=== PATIENT | female | born 1970 | race African-American/Black ===

== ENCOUNTER 2017-03-23 21:15 | Inpatient (IN) ==
[2017-03-23 21:48] LABS: Basophils % 0.4 % (0.0-0.8); Eosinophils # 0.3 10*3/uL (0.0-0.87); Eosinophils % 3.1 % (0.00-10.9); Hematocrit 44.4 VOL% (35.7-47.0); Hemoglobin 13.5 GM/DL (12.0-16.0); Immature Granulocytes % 0.4 %; Immature Granulocytes Absolute 0.04 #; Lymphocytes # 2.3 10*3/uL (1.4-4.0); Lymphocytes % 24.7 % (21.3-54.2); Mean Corpuscular HGB Conc 30.4 GM/DL (32-36); Mean Corpuscular Hemoglobin 25 PG (27-34); Mean Corpuscular Volume 82.1 FL (87-102); Mean Platelet Volume 10.4 FL (9.6-12.0); Monocytes # 0.7 10*3/uL (0.11-0.8); Monocytes % 7.1 % (1.7-12.7); Neutrophils # 5.9 10*3/uL (1.4-7.4); Neutrophils % 64.3 % (38.7-73.9); Platelet Count 309 T/CUMM (130-400); Red Blood Count 5.41 MC/CUMM (3.8-5.5); Red Cell Distribution Width 17.4 % (9.3-17.3); White Blood Count 9.2 T/CUMM (4-12)
[2017-03-23 22:12] LABS: Alanine Aminotransferase 17 U/L (13-56); Albumin 3.3 G/DL (3.4-5.0); Alkaline Phosphatase 141 U/L (45-117); Aspartate Amino Transferase 16 U/L (0-37); Bilirubin,Direct < 0.10 MG/DL (0.0-0.20); Bilirubin,Total < 0.39 MG/DL (0.2-1.0); Blood Urea Nitrogen 13 MG/DL (7-18); Calcium 9.3 MG/DL (8.5-10.1); Glucose 163 MG/DL (74-106); Osmolality,Calculated 276.8 MOS/KG (273-304); Potassium 4.2 MMOL/L (3.5-5.1); Sodium 137 MMOL/L (136-145); Total Protein 7.6 G/DL (6.4-8.3); Troponin I Only 0.023 NG/ML (0.00-0.045)
--- NOTE | 2017-03-23 22:35 | Emergency Department Note ---
Tree Winters Brittany, am scribing for, and in the presence of, Bart Bolaños MD 21 :47. Mami Winters Hans, MD, personally performed the services described in this documentation, ascribed by Ana Leavitt in my presence, and it is both accurate and complete . Arrival - Arrival Chief Complaint: Chest Pain Stated Complaint: chest pains/arm pain/stomach burning/weak ED Nursing Triage Note: pt to er 08 via wc with c/o having chest pain with nausea and radiating right arm pain. pt denies vomiting and denies sob. pt also c/o having abd pain. pt states onset this am 0700 Mode of Arrival: Wheelchair Limitations: No Limitations Source: Patient, RN Notes Reviewed - History of Present Illness HPI Narrative: Patient is a 46 y/o black female presenting to the ED with c/o chest pain which onset at 0700 this morning. Patient describes this pain as constant and pressure -like located in the mid-sternal chest radiating into the RUE. She states that nothing makes this pain better or worse. She states that she has had some tingling of the bilateral fingers, but has had no shortness of breath, diaphoresis, clammy skin, or pallor. Patient reports having janie mid-epigastric and RUQ abdominal pain described as a burning sensation that radiates into the back and shoulder. She states that she feels weak. Family hx significant for Heart Disease and [place]. Patient currently resides in [place], [place] and was here visiting a grandchild. 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 Patient has no other complaint/ pain. Onset (ago): hour(s) (14) Consistency: constant Allergies/Adverse Reactions: Allergies Allergy/AdvReac Type Severity Reaction Status Date / Time No Known Allergies Allergy Unverified 03/23/17 21:33 Review of System - Review of System 12 point system: reviewed and no additional remarkable complaints except as stated - Review of System Constitutional: Absent: chills, fever Eyes: Absent: vision change Head/Ears/Nose/Throat: Absent: nasal drainage, sore throat Respiratory: Absent: respiratory distress Cardiovascular: Present: chest pain Gastrointestinal: Present: abdominal pain. Absent: nausea, vomiting, diarrhea, constipation Genitourinary female: Absent: dysuria, frequency, urgency Musculoskeletal: Present: arm pain (shoulder, RUE), back pain. Absent: leg pain , neck pain Skin: Absent: rash Neurological: Present: paresthesias (bilateral fingers). Absent: headache Psychiatric: Absent: anxiety, depression Medical,Surgical,& Family Hx - Social History Smoking Status: Never smoker Frequency of Alcohol Use: Occasionally Type of Drug Use: None Exam Vital Signs: Vital Signs Temperature 98.7 F 03/23/17 21:25 Pulse Rate 86 03/23/17 21:25 Respiratory Rate 18 03/23/17 21:48 Blood Pressure 151/93 03/23/17 21:25 O2 Sat by Pulse Oximetry 99 03/23/17 21:25 - General General appearance: alert, in no apparent distress, obese - Head Head exam: Present: atraumatic, normocephalic, normal inspection - Eye Eye exam: Present: normal appearance, PERRL, EOMI - ENT ENT exam: Present: normal exam, normal oropharynx - Neck Neck exam: Present: full ROM, trachea midline. Absent: normal inspection (scar consistent with prior tracheostomy) - Chest Chest inspection: Present: normal inspection, symmetric chest wall rise. Absent : tenderness - Respiratory Respiratory exam: Present: normal lung sounds bilaterally - Cardiovascular Cardiovascular exam: Present: regular rate, normal rhythm, normal heart sounds - Abdominal Exam Abdominal exam: Present: soft, tenderness (mid-epigastric and RUQ), normal bowel sounds - Extremities Exam Extremities exam: Present: normal inspection - Back Exam Back exam: Present: normal inspection - Neurological Exam Neurological exam: Present: alert, oriented X3, CN II-XII intact. Absent: motor sensory deficit - Psychiatric Psychiatric exam: Present: normal affect, normal mood - Skin Skin exam: Present: warm, dry Course Course Narrative: This patient was evaluated in the ER with blood work as well as EKG. Her troponin was negative. EKG showed no ST changes. Right upper quadrant ultrasound was done for some tenderness there but it was negative. LFTs were normal. This patient is high risk for coronary artery disease and I discussed with the hospitalist on-call who agreed to come and see her for further treatment and workup. Results - Labs CBC & BMP: 03/23/17 21:29 03/23/17 21:29 Lab Results: I have reviewed the patients labs Labs: Laboratory Tests 03/23/17 21:29 WBC 9.2 RBC 5.41 Hgb 13.5 Hct 44.4 MCV 82.1 L MCH 25 L MCHC 30.4 L RDW 17.4 H Plt Count 309 Laboratory Tests 03/23/17 03/23/17 03/23/17 21:29 21:29 21:29 D-Dimer, Quantitative <= 0.5 Sodium 137 Potassium 4.2 Chloride 97 L Carbon Dioxide 31 BUN 13 Creatinine 0.80 Glucose 163 H Alkaline Phosphatase 141 H Total Creatine Kinase 179 CK-MB (CK-2) 1.4 Troponin I 0.023 Total Protein 7.6 Albumin 3.3 L Globulin 4.3 H Albumin/Globulin Ratio 0.7 L Laboratory Tests 03/23/17 21:29 B-Natriuretic Peptide 7 Disposition Clinical Impression: Chest pain Case discussed with: patient Disposition: Still a Patient Condition: Stable Instructions: Chest Pain (ED) Time of Disposition: 22:35
[2017-03-24] MEDS ORDERED: ONDANSETRON 4 MG/2 ML VIAL IV PRN (02:45)
--- NOTE | 2017-03-24 02:52 | Hospitalist History & Physical ---
Assessment and Plan (1) History of congestive heart failure Status: Acute Current Visit: Yes (2) Diabetes Status: Acute Current Visit: Yes (3) Chest pain Status: Acute Assessment and plan: Our plan for this patient will be admitting him to our service. Patient will be placed on telemetry. Serial cardiac enzymes were drawn. Cardiology will be consulted. Accu-Cheks before meals and at bedtime and sliding scale as needed. Home medications need to be confirmed Current Visit: Yes History of Present Illness Chief complaint: Chest pain History of present illness: Ms. Mazariegos is a 46 year old female with past medical history significant for hypertension, congestive heart failure, diabetes, arthritis who is in normal state of health until this morning. Patient had a squeezing sensation in her chest. She denies diaphoresis but did get her nauseated and burning sensation in her stomach. Seem to radiate to her right shoulder. She got concerned that was her heart and came up to our hospital for further evaluation. I was consulted to admit her through the emergency room. Allergies Allergy/AdvReac Type Severity Reaction Status Date / Time No Known Allergies Allergy Unverified 03/23/17 21:33 Medical,Surgical,& Family Hx - Medical History Cardio: History of: CHF, Hypertension Endocrine: History of: Diabetes Mellitus (NIDDM) - Surgical History Additional Surgical History: Tracheostomy - Family History Family History: Reports;: Family Diabetes, Family Heart Disease, Family Hypertension - Social History Smoking Status: Never smoker Frequency of Alcohol Use: Occasionally Type of Drug Use: None 12 point system: reviewed and no additional remarkable complaints except as stated Exam - Constitutional Vitals: Period Temp Pulse Resp BP Sys/Phan Pulse Ox Last 24 Hr 98.7 F-98.7 F 86-86 18-18 151-151/93-93 99 - General General appearance: alert, in no apparent distress, obese - Head Head exam: Present: atraumatic, normocephalic, normal inspection - Eye Eye exam: Present: normal appearance, PERRL, EOMI - ENT ENT exam: Present: normal exam, normal oropharynx - Neck Neck exam: Present: full ROM, trachea midline tracheostomy scar present - Chest Chest inspection: Present: normal inspection, symmetric chest wall rise. - Respiratory Respiratory exam: Present: normal lung sounds bilaterally - Cardiovascular Cardiovascular exam: Present: regular rate, normal rhythm, normal heart sounds - Abdominal Exam Abdominal exam: Present: soft, mild epigastrium tenderness - Extremities Exam Extremities exam: Present: normal inspection - Back Exam Back exam: Present: normal inspection - Neurological Exam Neurological exam: Present: alert, oriented X3, CN II-XII intact. - Psychiatric Psychiatric exam: Present: normal affect, normal mood - Skin Skin exam: Present: warm, dry Results - Labs CBC & BMP: 03/23/17 21:29 03/23/17 21:29
[2017-03-24 04:11] LABS: Risk Ratio 4.4; VLDL CHOLESTEROL 41.8 MG/DL
[2017-03-24] MEDS ORDERED: DEXTROSE 50% 25 GM/50 ML SYRINGE IV PRN (05:07)
[2017-03-24] MEDS ORDERED: GLUCAGON 1 MG VIAL IM PRN (05:07)
--- NOTE | 2017-03-24 06:24 | Ultrasound Report ---
US abdomen limited Indication: Generalized abdominal pain. Comparison: None. Technique: Multiple longitudinal and transverse real-time sonographic images of the right upper quadrant of the abdomen are obtained. Findings: The liver measures 20.7 cm and demonstrates increased echogenicity without focal abnormality on submitted images. The gallbladder is normal in size and demonstrates no wall thickening, abnormal intraluminal echoes, or pericholecystic fluid. The sonographic Swain's sign is negative. The common duct measures 0.5 cm in diameter and there is no evidence of significant intrahepatic ductal dilation. Right kidney measures 9.9 cm. Pancreas partially obscured by bowel gas. IMPRESSION: Hepatic steatosis/hepatomegaly. Preliminary report was issued by [facility]. PROCEDURE INTERPRETED AT [facility] DEPARTMENT OF RADIOLOGY Final Report Signed by: Dr Espinoza Dodson
--- NOTE | 2017-03-24 07:15 | EKG Report ---
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
--- NOTE | 2017-03-24 07:55 | XRay Report ---
XR chest 2V Indication: Chest pain Comparison: Chest x-ray dated August 30, 2013 Technique: Frontal and lateral views of the chest. Findings: The cardiomediastinal silhouette is stable in configuration. Continued mild cardiomegaly. Chronic change of the lungs without focal consolidation, pleural effusion, or pneumothorax. Visualized osseous and surrounding soft tissue structures appear grossly unchanged. IMPRESSION: Stable chest x-ray without acute cardiopulmonary process demonstrated. Continued mild cardiomegaly without iain pulmonary edema. PROCEDURE INTERPRETED AT [facility] [place] DEPARTMENT OF RADIOLOGY Final Report Signed by: Dr Espinoza Dodson
--- NOTE | 2017-03-24 08:56 | EKG Report ---
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
[2017-03-24] MEDS: ASPIRIN EC 325 MG TABLET PO SCH (09:19)
[2017-03-24] MEDS: INSULIN REGULAR 100 UNIT/ML SUBCUT SCH ×4 (09:19→22:50)
[2017-03-24] MEDS: PANTOPRAZOLE 40 MG VIAL IV SCH ×2 (09:19→22:50)
[2017-03-24] MEDS: ENOXAPARIN 40 MG/0.4 ML SYRINGE SUBCUT SCH (09:19)
--- NOTE | 2017-03-24 11:50 | Hospitalist Progress Note ---
Assessment and Plan - Time spent with patient Time spent with patient: Greater than 30 minutes (1) History of congestive heart failure Status: Chronic Current Visit: Yes (2) Diabetes Status: Chronic Current Visit: Yes (3) Atypical chest pain Status: Acute Current Visit: Yes (4) Hypertension Status: Chronic Current Visit: Yes (5) Dyslipidemia Status: Acute Assessment and plan: Being managed conservatively for now, on aspirin, Lipitor. Cardiology following Follow echocardiogram report. Antihypertensives on hold for hypotensive episode, resume her antihypertensive medication as appropriate. Sleep medicine consulted for management of her TORIN. Blood sugars have been stable, continue sliding scale insulin for now. Check A1c, TSH. Current Visit: Yes (6) Obstructive sleep apnea Status: Chronic Current Visit: Yes Hospitalist: Subjective Interval history: Morbidly obese lady who was admitted overnight for central chest pain with right radiation. Past medical history includes CHF, diabetes, arthritis putting her at risk for possible ACS. So far her serial troponins have been negative and no new EKG changes. She says her pain is slightly better about 6/10. She was sitting up in the time of my rounds. She denies any cough or wheezing. Admitted to mild bilateral lower extremity edema Exam - Constitutional Vitals: Period Temp Pulse Resp BP Sys/Phan Pulse Ox Last 24 Hr 97.2 F-98.7 F 85-86 18-22 99-151/64-93 95-99 Exam: - General General appearance: alert, in no apparent distress, obese - Head Head exam: Present: atraumatic, normocephalic, normal inspection - Eye Eye exam: Present: normal appearance, PERRL, EOMI - ENT ENT exam: Present: normal exam, normal oropharynx - Neck Neck exam: Present: full ROM, trachea midline tracheostomy scar present - Chest Chest inspection: Present: normal inspection, symmetric chest wall rise. - Respiratory Respiratory exam: Present: normal lung sounds bilaterally - Cardiovascular Cardiovascular exam: Present: regular rate, normal rhythm, normal heart sounds - Abdominal Exam Abdominal exam: Present: soft, mild epigastrium tenderness - Extremities Exam Extremities exam: Present: normal inspection - Back Exam Back exam: Present: normal inspection - Neurological Exam Neurological exam: Present: alert, oriented X3, CN II-XII intact. - Psychiatric Psychiatric exam: Present: normal affect, normal mood - Skin Skin exam: Present: warm, dry Results - Labs CBC & BMP: 03/23/17 21:29 03/23/17 21:29 Lab Results: I have reviewed the past 24 hour labs Specialty Discharge - Follow Up or Referrals
--- NOTE | 2017-03-24 12:01 | Cardiology Consult Note ---
<Livier Mello E - Last Filed: 03/24/17 11:31> Assessment and Plan - Time spent with patient Time spent with patient: Greater than 30 minutes (due to assessment, plan, and documentation) (1) Atypical chest pain Status: Acute Assessment and plan: See plan of care listed below. Current Visit: Yes (2) Hypertension Status: Chronic Assessment and plan: See plan of care listed below. Current Visit: Yes (3) Diabetes Status: Chronic Assessment and plan: See plan of care listed below. Current Visit: Yes (4) Dyslipidemia Status: Acute Assessment and plan: See plan of care listed below. Current Visit: Yes (5) Obstructive sleep apnea Status: Chronic Assessment and plan: See plan of care listed below. Current Visit: Yes (6) History of congestive heart failure Status: Chronic Assessment and plan: See plan of care listed below. 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 Kylie Sanchez Ms. Mazariegos is a 46 year old female who has a history of congestive heart failure, hypertension, diabetes, obstructive sleep apnea, arthritis, and new onset dyslipidemia. Risk factors are significant for: hypertension, diabetes, hyperlipidemia, obesity, and sedentary lifestyle. She does not have a CPAP machine. She reports she was seen in the past by ship boss, Dr. Leavitt, at [facility], but does not remember what she was told regarding diagnoses. Ms. Mazariegos reported to the emergency room yesterday with complaints of chest pain and we were consulted to see her. She reports this began yesterday when she experienced a midsternal chest discomfort that began at rest. She describes this as a sharp pain that has been continuous, lasting for several hours. Her midsternal chest pain is reproducible to palpation; however, she reports that when she gets up to walk, her chest pain and abdominal pain worsen. She had associated symptoms of dizziness, nausea, lower abdominal pain, and nausea. She is also currently on her menstrual cycle and is experiencing abdominal cramping but she reports this feels different than usual. Her last bowel movement was yesterday, but she tells me it was not normal. She has had 2 sets of negative cardiac biomarkers and unremarkable EKGs which show sinus rhythm with occasional PVC and nonspecific ST-T abnormality. BNP on arrival was 7. Creatinine 0.8, potassium 4.2. Lipid panel revealed triglycerides 209, cholesterol 220, LDL 144, and HDL 50. ASSESSMENT/PLAN: 1. ATYPICAL CHEST PAIN - She reports many atypical features of chest pain; however, she has significant risk factors for CAD and reports her pain is exacerbated with ambulation. She is not a candidate for stress testing given her weight of 365#. She may require heart catheterization prior to discharge. Will check beta HCG to rule out prior to proceeding. 2. HYPERTENSION - She has had several elevated readings since admission but is noted to be slightly hypotensive this morning. Will monitor and adjust medications accordingly throughout hospital stay. 3. DIABETES - She is on accuchecks and sliding scale insulin. 4. HYPERLIPIDEMIA - Will start atorvastatin 20mg po QHS and see if she tolerates. Lipid panel revealed triglycerides 209, cholesterol 220, LDL 144, and HDL 50. 5. OBSTRUCTIVE SLEEP APNEA - Patient is noncompliant with CPAP and reports she does not have a CPAP machine. Will consult sleep medicine for assistance. 6. HISTORY OF CHF - Mild bilateral lower extremity edema with chronic vascular changes. Will check bilateral lower extremity venous dopplers. CC: Jerrod Petty MD - Home Medications and Allergies Allergies/Adverse Reactions: Allergies Allergy/AdvReac Type Severity Reaction Status Date / Time No Known Allergies Allergy Unverified 03/23/17 21:33 Review of systems: - Constitutional: Present: As per HPI. Absent: anorexia, chills, daytime sleepiness, excessive sweating, fever(s), frequent falls, headache(s), increased appetite, lethargy, malaise, night sweats, stops breathing during sleep, weakness, weight gain, weight loss, fatigue. - EENT Eyes: Present: As per HPI. Absent: blurry vision, diplopia, loss of vision Ears: Present: As per HPI. Absent: decreased hearing, ear discharge, ear pain Nose, mouth and throat: Present: As per HPI. Absent: dysphagia, epistaxis, headache(s), hoarseness, lip swelling, nasal congestion, neck mass, neck pain, sinus pressure, sore throat, throat swelling, tongue swelling, vertigo - Cardiovascular: Present: chest pain at rest, chest pain with activity, edema, chest pain with palpation, as per HPI. Absent: dyspnea, dyspnea on exertion, claudication, diaphoresis, radiating jaw, neck or arm pain, lightheadedness, orthopnea, palpitations, PND - Respiratory: Present: as per HPI. Absent: dyspnea, dyspnea on exertion, cough , hemoptysis, wheezing, snoring, pain on inspiration - Gastrointestinal: Present: abdominal pain, diarrhea, As per HPI. Absent: bloating, change in bowel habits, constipation, heartburn, hematemesis, hematochezia, loose stools, melena, nausea, vomiting - Genitourinary: Present: As per HPI. Absent: difficulty urinating, dysuria, flank pain, hematuria, nocturia, urinary frequency, urinary incontinence - Musculoskeletal: Present: As per HPI. Absent: arthralgias, back pain, joint swelling, limited range of motion, muscle cramps, muscle weakness, myalgias - Neurological: Present: dizziness, As per HPI. Absent: abnormal gait, abnormal speech, behavioral changes, confusion, convulsions, disequilibrium, focal weakness, frequent falls, headache(s), memory loss, numbness, paresthesias, radicular pain, syncope, tremor(s) - Psychiatric: Present: As per HPI. Absent: anxiety, confusion, depression, panic attacks - Endocrine: Present: As per HPI. Absent: cold intolerance, fatigue, heat intolerance, polydipsia, polyphagia - Hematologic/Lymphatic: Present: As per HPI. Absent: easy bleeding, easy bruising, lymphadenopathy Medical,Surgical,& Family Hx - Medical History Cardio: History of: CHF, Hypertension Neurology: History of: Brain Aneurysm, Cerebrovascular Accident Endocrine: History of: Diabetes Mellitus (IDDM), Diabetes Mellitus (NIDDM) Respiratory: History of: Respiratory Problems (past trach for carbon monoxide poisoning) Musculoskeletal: History of: Musculoskeletal Problems (neuropathy) No history of: Amputation - Surgical History Cardiac Surgeries: Patient Denies: Femoral-Popliteal Bypass Graft, Cardiac Catheterization, Cardiac Surgery, Carotid Endarterectomy, Internal Defibrillator, Vascular Access Devices Thoracic Surgeries: Patient denies;: Lobectomy Neurologic Surgeries: Surgical HX of: Brain Aneurysm Patient denies: Neurologic Surgery HEENT Surgeries: Patient denies: Carotid Endarterectomy Abdominal Surgeries: Patient denies: Abdominal Surgery, Splenectomy Reproductive Surgeries: Surgical HX of;: Gynecologic Surgery, Tubal Ligation Patient denies;: Genitourinary Surgery - Family History Family History: Reports;: Family Cancer, Family Diabetes, Family Heart Disease, Family Hypertension, Family Stroke - Social History Smoking Status: Never smoker Frequency of Alcohol Use: Occasionally Type of Drug Use: None Physical Examination Vital Signs Temp Pulse Resp BP Pulse Ox 98.7 F 86 18 151/93 99 03/23/17 21:25 03/23/17 21:25 03/23/17 21:25 03/23/17 21:25 03/23/17 21:25 Exam: General appearance: Pleasant and cooperative. Morbid obesity, no acute distress. - Head Head exam: Present: normal inspection, normocephalic, atraumatic. Absent: hematoma, laceration - Eye Eye exam: Present: EOMI. Absent: conjunctival injection, nystagmus, periorbital swelling, scleral icterus, laceration to eyelids Pupils: Present: PERRL. Absent: constricted, dilated, fixed, irregular, unequal - ENT ENT exam: Present: normal exam, normal external ear exam - Neck Neck exam: Present: normal inspection. Absent: lymphadenopathy, meningismus, tenderness, thyromegaly, carotid bruit - Respiratory Respiratory exam: Present: clear to auscultation bilaterally. Absent: accessory muscle use, chest wall tenderness, rales, rhonchi, wheezing. - Cardiovascular Cardiovascular exam: Present: regular rate and rhythm. Absent: gallop, rubs, murmur - GI/Abdominal GI/Abdominal exam: Present: normal bowel sounds, soft. Absent: distended, firm , guarding, hernia, mass, rebound. - Extremities Exam Extremities exam: Present: normal inspection, normal capillary refill. Upper extremity pulses 2+. Lower extremity pulses 2+. Trace BLE edema. Absent: calf tenderness -Musculoskeletal Exam Musculoskeletal: Present: No Fluid Collection, No Pain, Normal Range of Motion - Back Exam Back exam: Present: normal inspection. Absent: muscle spasm, vertebral tenderness - Neurological Exam Neurological exam: Present: alert, oriented X3, grossly intact without resting or essential tremor - Psychiatric Psychiatric exam: Present: normal affect, normal mood - Skin Skin exam: Present: Chronic vascular changes to BLE, warm, dry, intact. Absent : cyanosis, diaphoretic, rash, urticaria Result/EKG - Labs CBC & BMP: 03/23/17 21:29 03/23/17 21:29 Lab Results: I have reviewed the past 24 hour labs Labs: Laboratory Results - last 24 hr 03/23/17 03/23/17 03/23/17 21:29 21:29 21:29 WBC 9.2 RBC 5.41 Hgb 13.5 Hct 44.4 MCV 82.1 L MCH 25 L MCHC 30.4 L RDW 17.4 H Plt Count 309 MPV 10.4 Neut % (Auto) 64.3 Lymph % (Auto) 24.7 [place] % (Auto) 7.1 Eos % (Auto) 3.1 Baso % (Auto) 0.4 Neut # (Auto) 5.9 Lymph # (Auto) 2.3 [place] # (Auto) 0.7 Eos # (Auto) 0.3 Baso # (Auto) 0.0 Immature Gran % 0.4 Nucleated RBC % 0.0 Immature Gran # 0.04 Nucleated RBCs # 0.00 Immature Plt Fraction 0.0 D-Dimer, Quantitative Sodium 137 Potassium 4.2 Chloride 97 L Carbon Dioxide 31 Anion Gap 13.2 BUN 13 Creatinine 0.80 GFR Calculation 148 BUN/Creatinine Ratio 16.00 Glucose 163 H POC Glucose Calculated Osmolality 276.8 Calcium 9.3 Total Bilirubin < 0.39 Direct Bilirubin < 0.10 AST 16 ALT 17 Alkaline Phosphatase 141 H Total Creatine Kinase 179 CK-MB (CK-2) 1.4 Troponin I 0.023 B-Natriuretic Peptide Total Protein 7.6 Albumin 3.3 L Globulin 4.3 H Albumin/Globulin Ratio 0.7 L Triglycerides Cholesterol LDL Cholesterol VLDL Cholesterol HDL Cholesterol Heart Disease Risk Ratio Lipase 202.0 03/23/17 03/23/17 03/24/17 21:29 21:29 03:00 WBC RBC Hgb Hct MCV MCH MCHC RDW Plt Count MPV Neut % (Auto) Lymph % (Auto) [place] % (Auto) Eos % (Auto) Baso % (Auto) Neut # (Auto) Lymph # (Auto) [place] # (Auto) Eos # (Auto) Baso # (Auto) Immature Gran % Nucleated RBC % Immature Gran # Nucleated RBCs # Immature Plt Fraction D-Dimer, Quantitative <= 0.5 Sodium Potassium Chloride Carbon Dioxide Anion Gap BUN Creatinine GFR Calculation BUN/Creatinine Ratio Glucose POC Glucose Calculated Osmolality Calcium Total Bilirubin Direct Bilirubin AST ALT Alkaline Phosphatase Total Creatine Kinase CK-MB (CK-2) Troponin I B-Natriuretic Peptide 7 Total Protein Albumin Globulin Albumin/Globulin Ratio Triglycerides 209 H Cholesterol 220 H LDL Cholesterol 144.0 VLDL Cholesterol 41.8 HDL Cholesterol 50 Heart Disease Risk Ratio 4.40 Lipase 03/24/17 03/24/17 03/24/17 03:06 06:28 07:25 WBC RBC Hgb Hct MCV MCH MCHC RDW Plt Count MPV Neut % (Auto) Lymph % (Auto) [place] % (Auto) Eos % (Auto) Baso % (Auto) Neut # (Auto) Lymph # (Auto) [place] # (Auto) Eos # (Auto) Baso # (Auto) Immature Gran % Nucleated RBC % Immature Gran # Nucleated RBCs # Immature Plt Fraction D-Dimer, Quantitative Sodium Potassium Chloride Carbon Dioxide Anion Gap BUN Creatinine GFR Calculation BUN/Creatinine Ratio Glucose POC Glucose 169 H Calculated Osmolality Calcium Total Bilirubin Direct Bilirubin AST ALT Alkaline Phosphatase Total Creatine Kinase CK-MB (CK-2) Troponin I 0.017 0.016 B-Natriuretic Peptide Total Protein Albumin Globulin Albumin/Globulin Ratio Triglycerides Cholesterol LDL Cholesterol VLDL Cholesterol HDL Cholesterol Heart Disease Risk Ratio Lipase 03/24/17 08:54 WBC RBC Hgb Hct MCV MCH MCHC RDW Plt Count MPV Neut % (Auto) Lymph % (Auto) [place] % (Auto) Eos % (Auto) Baso % (Auto) Neut # (Auto) Lymph # (Auto) [place] # (Auto) Eos # (Auto) Baso # (Auto) Immature Gran % Nucleated RBC % Immature Gran # Nucleated RBCs # Immature Plt Fraction D-Dimer, Quantitative Sodium Potassium Chloride Carbon Dioxide Anion Gap BUN Creatinine GFR Calculation BUN/Creatinine Ratio Glucose POC Glucose Calculated Osmolality Calcium Total Bilirubin Direct Bilirubin AST ALT Alkaline Phosphatase Total Creatine Kinase CK-MB (CK-2) Troponin I < 0.015 B-Natriuretic Peptide Total Protein Albumin Globulin Albumin/Globulin Ratio Triglycerides Cholesterol LDL Cholesterol VLDL Cholesterol HDL Cholesterol Heart Disease Risk Ratio Lipase - EKG EKG results: interpreted by me, sinus rhythm Specialty Discharge - Follow Up or Referrals <Sarah Paul - Last Filed: 03/24/17 18:17> History of Present Illness - Consult Narrative History of present illness: I have personally interviewed and evaluated the patient, reviewed the chart and discussed medical decision-making with practitioner Riaz. I have read this note and agree with her documentation here in. CC: Jerrod Petty MD Physical Examination Vital Signs Temp Pulse Resp BP Pulse Ox 98.7 F 86 18 151/93 99 03/23/17 21:25 03/23/17 21:25 03/23/17 21:25 03/23/17 21:25 03/23/17 21:25 Result/EKG - Labs CBC & BMP: 03/23/17 21:29 03/23/17 21:29 Labs: Laboratory Results - last 24 hr 03/23/17 03/23/17 03/23/17 21:29 21:29 21:29 WBC 9.2 RBC 5.41 Hgb 13.5 Hct 44.4 MCV 82.1 L MCH 25 L MCHC 30.4 L RDW 17.4 H Plt Count 309 MPV 10.4 Neut % (Auto) 64.3 Lymph % (Auto) 24.7 [place] % (Auto) 7.1 Eos % (Auto) 3.1 Baso % (Auto) 0.4 Neut # (Auto) 5.9 Lymph # (Auto) 2.3 [place] # (Auto) 0.7 Eos # (Auto) 0.3 Baso # (Auto) 0.0 Immature Gran % 0.4 Nucleated RBC % 0.0 Immature Gran # 0.04 Nucleated RBCs # 0.00 Immature Plt Fraction 0.0 D-Dimer, Quantitative Sodium 137 Potassium 4.2 Chloride 97 L Carbon Dioxide 31 Anion Gap 13.2 BUN 13 Creatinine 0.80 GFR Calculation 148 BUN/Creatinine Ratio 16.00 Glucose 163 H POC Glucose Calculated Osmolality 276.8 Calcium 9.3 Total Bilirubin < 0.39 Direct Bilirubin < 0.10 AST 16 ALT 17 Alkaline Phosphatase 141 H Total Creatine Kinase 179 CK-MB (CK-2) 1.4 Troponin I 0.023 B-Natriuretic Peptide Total Protein 7.6 Albumin 3.3 L Globulin 4.3 H Albumin/Globulin Ratio 0.7 L Triglycerides Cholesterol LDL Cholesterol VLDL Cholesterol HDL Cholesterol Heart Disease Risk Ratio Lipase 202.0 HCG Beta Subunit 03/23/17 03/23/17 03/24/17 21:29 21:29 03:00 WBC RBC Hgb Hct MCV MCH MCHC RDW Plt Count MPV Neut % (Auto) Lymph % (Auto) [place] % (Auto) Eos % (Auto) Baso % (Auto) Neut # (Auto) Lymph # (Auto) [place] # (Auto) Eos # (Auto) Baso # (Auto) Immature Gran % Nucleated RBC % Immature Gran # Nucleated RBCs # Immature Plt Fraction D-Dimer, Quantitative <= 0.5 Sodium Potassium Chloride Carbon Dioxide Anion Gap BUN Creatinine GFR Calculation BUN/Creatinine Ratio Glucose POC Glucose Calculated Osmolality Calcium Total Bilirubin Direct Bilirubin AST ALT Alkaline Phosphatase Total Creatine Kinase CK-MB (CK-2) Troponin I B-Natriuretic Peptide 7 Total Protein Albumin Globulin Albumin/Globulin Ratio Triglycerides 209 H Cholesterol 220 H LDL Cholesterol 144.0 VLDL Cholesterol 41.8 HDL Cholesterol 50 Heart Disease Risk Ratio 4.40 Lipase HCG Beta Subunit 03/24/17 03/24/17 03/24/17 03:06 06:28 07:25 WBC RBC Hgb Hct MCV MCH MCHC RDW Plt Count MPV Neut % (Auto) Lymph % (Auto) [place] % (Auto) Eos % (Auto) Baso % (Auto) Neut # (Auto) Lymph # (Auto) [place] # (Auto) Eos # (Auto) Baso # (Auto) Immature Gran % Nucleated RBC % Immature Gran # Nucleated RBCs # Immature Plt Fraction D-Dimer, Quantitative Sodium Potassium Chloride Carbon Dioxide Anion Gap BUN Creatinine GFR Calculation BUN/Creatinine Ratio Glucose POC Glucose 169 H Calculated Osmolality Calcium Total Bilirubin Direct Bilirubin AST ALT Alkaline Phosphatase Total Creatine Kinase CK-MB (CK-2) Troponin I 0.017 0.016 B-Natriuretic Peptide Total Protein Albumin Globulin Albumin/Globulin Ratio Triglycerides Cholesterol LDL Cholesterol VLDL Cholesterol HDL Cholesterol Heart Disease Risk Ratio Lipase HCG Beta Subunit 03/24/17 03/24/17 03/24/17 08:54 08:54 11:34 WBC RBC Hgb Hct MCV MCH MCHC RDW Plt Count MPV Neut % (Auto) Lymph % (Auto) [place] % (Auto) Eos % (Auto) Baso % (Auto) Neut # (Auto) Lymph # (Auto) [place] # (Auto) Eos # (Auto) Baso # (Auto) Immature Gran % Nucleated RBC % Immature Gran # Nucleated RBCs # Immature Plt Fraction D-Dimer, Quantitative Sodium Potassium Chloride Carbon Dioxide Anion Gap BUN Creatinine GFR Calculation BUN/Creatinine Ratio Glucose POC Glucose 206 H Calculated Osmolality Calcium Total Bilirubin Direct Bilirubin AST ALT Alkaline Phosphatase Total Creatine Kinase CK-MB (CK-2) Troponin I < 0.015 B-Natriuretic Peptide Total Protein Albumin Globulin Albumin/Globulin Ratio Triglycerides Cholesterol LDL Cholesterol VLDL Cholesterol HDL Cholesterol Heart Disease Risk Ratio Lipase HCG Beta Subunit < 1.0 L 03/24/17 16:23 WBC RBC Hgb Hct MCV MCH MCHC RDW Plt Count MPV Neut % (Auto) Lymph % (Auto) [place] % (Auto) Eos % (Auto) Baso % (Auto) Neut # (Auto) Lymph # (Auto) [place] # (Auto) Eos # (Auto) Baso # (Auto) Immature Gran % Nucleated RBC % Immature Gran # Nucleated RBCs # Immature Plt Fraction D-Dimer, Quantitative Sodium Potassium Chloride Carbon Dioxide Anion Gap BUN Creatinine GFR Calculation BUN/Creatinine Ratio Glucose POC Glucose 263 H Calculated Osmolality Calcium Total Bilirubin Direct Bilirubin AST ALT Alkaline Phosphatase Total Creatine Kinase CK-MB (CK-2) Troponin I B-Natriuretic Peptide Total Protein Albumin Globulin Albumin/Globulin Ratio Triglycerides Cholesterol LDL Cholesterol VLDL Cholesterol HDL Cholesterol Heart Disease Risk Ratio Lipase HCG Beta Subunit
--- NOTE | 2017-03-24 12:37 | Ultrasound Report ---
US venous doppler LE BI Indication: BLE edema. Comparison: None. Technique: Grayscale, spectral, and color Doppler interrogation of the bilateral lower extremity veins was performed. Augmentation and compression was performed. Findings: Grayscale, color Doppler, and pulsed Doppler evaluation of the veins of the bilateral lower extremity demonstrates no evidence of deep venous thrombosis. IMPRESSION: No evidence of deep venous thrombosis in either lower extremity. PROCEDURE INTERPRETED AT [facility] DEPARTMENT OF RADIOLOGY Final Report Signed by: Dr Espinoza Dodson
--- NOTE | 2017-03-24 16:32 | Sleep Medicine Consult ---
Assessment and Plan (1) Obstructive sleep apnea Status: Chronic Assessment and plan: I reviewed the results of her overnight polysomnography from 2012 and explained the severity of findings. Since her diagnostic study, she has gained approximately 50 pounds. I explained the correlation between underlying sleep apnea and several of her conditions including stroke, heart failure, diabetes and hypertension and explained that untreated sleep apnea would continue to deteriorate her health. She verbalized understanding and is willing to try CPAP therapy again. I will have a member of the sleep lab fit her for a mask and prescribe an auto titration during the remainder of her hospital stay. She has been non-compliant with CPAP in the past and will require frequent monitoring to ensure her sleep apnea remains controlled. Current Visit: Yes History of Present Illness Chief complaint: TORIN History of present illness: Ms. Mazariegos is a 46 year old female who has a known history of obstructive sleep apnea. She was first diagnosed with severe obstructive sleep apnea in April 2013 at which time she had a diagnostic AHI of 122.9 along with oxygen desaturations as low as 30%. Her study was done in a split-night fashion and she was titrated to a CPAP pressure of 10 cm for treatment. She has been noncompliant with therapy and has failed to show up for numerous appointments in the sleep lab. Her health has continued to deteriorate and she has now suffered from stroke, brain aneurysm and has continued to struggle with congestive heart failure, diabetes, hypertension and reflux disease. She is morbidly obese with a BMI of 60.8. She admits to long history of snoring and abnormal breathing at night and is unable to sleep flat. She mostly dozes off and on throughout the night and day while sitting upright. She is excessively sleepy all the times and has an elevated [place] sleepiness score of 21. She lives alone but does have excellent family support from nearby relatives. Allergies Allergy/AdvReac Type Severity Reaction Status Date / Time No Known Allergies Allergy Unverified 03/23/17 21:33 - Constitutional Constitutional: Present: daytime sleepiness, fatigue, lethargy, night sweats, stops breathing during sleep - EENT Nose, mouth and throat: Absent: nasal congestion, sore throat - Cardiovascular Cardiovascular: Present: chest pain with activity, dyspnea on exertion, edema, orthopnea - Respiratory Respiratory: Present: snoring. Absent: wheezing - Gastrointestinal Gastrointestinal: Present: bloating, diarrhea, dyspepsia, heartburn. Absent: nausea - Genitourinary Genitourinary: Present: urinary frequency - Musculoskeletal Musculoskeletal: Present: arthralgias, back pain. Absent: muscle cramps - Neurological Neurological: Present: dizziness, headache(s), memory loss - Psychiatric Psychiatric: Absent: anxiety, depression - Endocrine Endocrine: Present: heat intolerance Exam ([facility]) H&P - Constitutional Vitals: Period Temp Pulse Resp BP Sys/Phan Pulse Ox Last 24 Hr 97.1 F-98.7 F 85-89 18-22 99-151/64-93 95-99 General appearance: morbidly obese - Head Head exam: Present: normocephalic, atraumatic - Eye Pupils: Present: BRYANT - ENT ENT exam: Present: other (Mallampati class IV) - Expanded ENT Exam ENT Exam Mouth exam: Present: moist Teeth exam: Present: dental caries Throat exam: Absent: post pharyngeal edema, post pharyngeal erythema - Neck Neck exam: Present: other (post tracheostomy scar noted). Absent: lymphadenopathy, tenderness, thyromegaly - Respiratory Respiratory exam: Present: clear to auscultation bilaterally. Absent: wheezes - Cardiovascular Cardiovascular exam: Present: regular rate and rhythm - GI/Abdominal GI/Abdominal exam: Present: normal bowel sounds, soft. Absent: tenderness - Extremities Exam Extremities exam: Present: normal capillary refill, edema (trace edema bilaterally). Absent: calf tenderness - Neurological Exam Neurological exam: Present: oriented X3 - Psychiatric Psychiatric exam: Present: normal mood. Absent: depressed - Skin Skin exam: Present: warm, dry Medical,Surgical,& Family Hx - Medical History Cardio: History of: CHF, Hypertension Neurology: History of: Brain Aneurysm, Cerebrovascular Accident Endocrine: History of: Diabetes Mellitus (IDDM), Diabetes Mellitus (NIDDM) Respiratory: History of: Respiratory Problems (past trach for carbon monoxide poisoning) Musculoskeletal: History of: Musculoskeletal Problems (neuropathy) No history of: Amputation - Surgical History Cardiac Surgeries: Patient Denies: Femoral-Popliteal Bypass Graft, Cardiac Catheterization, Cardiac Surgery, Carotid Endarterectomy, Internal Defibrillator, Vascular Access Devices Thoracic Surgeries: Patient denies;: Lobectomy Neurologic Surgeries: Surgical HX of: Brain Aneurysm Patient denies: Neurologic Surgery HEENT Surgeries: Patient denies: Carotid Endarterectomy Abdominal Surgeries: Patient denies: Abdominal Surgery, Splenectomy Reproductive Surgeries: Surgical HX of;: Gynecologic Surgery, Tubal Ligation Patient denies;: Genitourinary Surgery - Family History Family History: Reports;: Family Cancer, Family Diabetes, Family Heart Disease, Family Hypertension, Family Stroke - Social History Smoking Status: Never smoker Frequency of Alcohol Use: Occasionally Type of Drug Use: None Results - Labs CBC & BMP: 03/23/17 21:29 03/23/17 21:29 Specialty Discharge - Follow Up or Referrals
[2017-03-24] MEDS: ATORVASTATIN 20 MG TABLET PO SCH (22:50)
[2017-03-25] MEDS: ACETAMINOPHEN 325 MG TABLET PO PRN (04:27)
[2017-03-25 05:11] LABS: Basophils % 0.2 % (0.0-0.8); Eosinophils # 0.2 10*3/uL (0.0-0.87); Eosinophils % 2.8 % (0.00-10.9); Hematocrit 44.8 VOL% (35.7-47.0); Hemoglobin 12.9 GM/DL (12.0-16.0); Immature Granulocytes % 0.5 %; Immature Granulocytes Absolute 0.04 #; Lymphocytes # 1.9 10*3/uL (1.4-4.0); Lymphocytes % 23.6 % (21.3-54.2); Mean Corpuscular HGB Conc 28.8 GM/DL (32-36); Mean Corpuscular Hemoglobin 24 PG (27-34); Mean Corpuscular Volume 84.4 FL (87-102); Mean Platelet Volume 11.2 FL (9.6-12.0); Monocytes # 0.6 10*3/uL (0.11-0.8); Monocytes % 7.4 % (1.7-12.7); Neutrophils # 5.3 10*3/uL (1.4-7.4); Neutrophils % 65.5 % (38.7-73.9); Platelet Count 315 T/CUMM (130-400); Red Blood Count 5.31 MC/CUMM (3.8-5.5); Red Cell Distribution Width 18.2 % (9.3-17.3); White Blood Count 8.1 T/CUMM (4-12)
[2017-03-25 05:47] LABS: Calcium 8.6 MG/DL (8.5-10.1); Magnesium 1.9 MG/DL (1.8-2.4); Osmolality,Calculated 282.5 MOS/KG (273-304); Potassium 4.5 MMOL/L (3.5-5.1)
[2017-03-25 06:05] LABS: Free T4 (Free Thyroxine) 0.91 NG/DL (0.76-1.46); Thyroid Stimulating Hormone 1.59 uIU/ml (0.358-3.74)
[2017-03-25 06:29] LABS: Platelet Estimate Normal
--- NOTE | 2017-03-25 07:05 | ECHO Report ---
Ann Mazariegos 03/24/2017 Exam Date: 14:08 Referring Physician: jame Dyer Technologist: CALIXTO KUNZ Age: 46 Ht (in): 65 Wt (lb): 365 FExam Location: [facility] Gender: Echo [id number]: Essential (primary) hypertension, ChIndications: unspecified, Dyslipidemia, IDDM, Hyperlipidemia, CHF, Morbidly obese BP: 115 / 75 HR: 88 SinusRhythm: Technically difficult due to Technical Quality: body habitus IMPRESSIONS Technically very limited study due to poor echo windows. Overall systolic function is suspected to be normal. Grade 1/4 diastolic dysfunction. Moderate concentric left ventricular hypertrophy. Mild right ventricular dilation. In general none of the valves are well seen. There is trace to mild tricuspid regurgitation detected by Doppler interrogation. Mild pulmonary hypertension, pulmonary artery pressure estimated at 46 more meters mercury. MEASUREMENTS (Male / Female) Normal Values 2D ECHO LV Diastolic Diameter PLAX 3.9 cm 4.2 - 5.9 / 3.9 - 5.3 cm LV Systolic Diameter PLAX 1.9 cm LV Fractional Shortening PLAX 52.0 % IVS Diastolic Thickness 1.5 cm 0.6 - 1.0 / 0.6 - 0.9 cm LVPW Diastolic Thickness 1.5 cm 0.6 - 1.0 / 0.6 - 0.9 cm RV Internal Dim ED PLAX 4.3 cm Aortic Root Diameter 3.1 cm LA Systolic Diameter LX 3.0 cm 3.0 - 4.0 / 2.7 - 3.8 cm DOPPLER TR Peak Velocity 300.0 cm/s TR Peak Gradient 36.0 mmHg FINDINGS Left Ventricle Normal left ventricular cavity size. Mild left ventricular hypertrophy. Left ventricular ejection fraction is suspected to be normal. Poor endocardial resolution prohibits regional wall motion assessment or further assessment of the systolic function. Right Ventricle Mildly dilated. Right Atrium The right atrium is normal in size. Left Atrium The left atrium is normal in size. Mitral Valve Morphologically normal mitral valve without significant stenosis or prolapse. There is no mitral regurgitation. Aortic Valve Aortic valve not well visualized. . No aortic valve regurgitation. No aortic valve stenosis. Tricuspid Valve Morphologically normal tricuspid valve. Trace to mild tricuspid valve regurgitation. Tricuspid regurgitation velocities suggest a PAP of 46 mmHg. Pulmonic Valve Pulmonic valve not well visualized. Pericardium Normal pericardium without effusion. Aorta Normal ascending aorta dimension. Sarah Paul MD (Electronically Signed) 25 March 2017 Final Date: 07:04
[2017-03-25] MEDS: PANTOPRAZOLE 40 MG VIAL IV SCH ×2 (09:01→20:35)
[2017-03-25] MEDS: ENOXAPARIN 40 MG/0.4 ML SYRINGE SUBCUT SCH (09:01)
[2017-03-25] MEDS: ASPIRIN EC 325 MG TABLET PO SCH (09:01)
[2017-03-25] MEDS: INSULIN REGULAR 100 UNIT/ML SUBCUT SCH ×4 (09:01→21:26)
--- NOTE | 2017-03-25 12:38 | Sleep Medicine Progress Note ---
Assessment and Plan (1) Obstructive sleep apnea Status: Chronic Assessment and plan: The information obtained from scanning CPAP device last night does show 3 hours of use. While on CPAP pressure ranging from 8-20 cm, her AHI improved to 19.8 which is significant improvement from her diagnostic AHI of 122.9. Her average device pressure was 9.3 cm which she reports tolerating well. I encouraged her to continue therapy during any daytime napping as well as nighttime sleep. She will continue to use this device for the duration of her hospital stay and then will be provided with a prescription for CPAP device and necessary supplies. She wishes to continue with [facility] as her DME provider. Current Visit: Yes Sleep Medicine Subjective Interval history: Ms. Mazariegos has a positive history for severe obstructive sleep apnea with a diagnostic AHI of 122.9 along with profound oxygen desaturations as low as 30% when she was initially diagnosed in 2012. Unfortunately, she was noncompliant with therapy. Sleep medicine was consulted yesterday for her to initiate treatment of her underlying apnea and an auto CPAP device was prescribed. She tolerated CPAP therapy well last night but states her sleep is very "disrupted" due to interruptions from medical staff. She did feel more rested this morning. The pressure setting was comfortable and she tolerated the full facemask well. Exam (Progress Note) - Constitutional Vitals: Period Temp Pulse Resp BP Sys/Phan Pulse Ox Last 24 Hr 96.4 F-97.7 F 79-101 16-20 120-152/61-88 94-99 General appearance: morbidly obese - Head Head exam: Present: normocephalic, atraumatic - Respiratory Respiratory exam: Present: clear to auscultation bilaterally. Absent: rhonchi, wheezes - Cardiovascular Cardiovascular exam: Present: regular rate and rhythm - GI/Abdominal GI/Abdominal exam: Present: normal bowel sounds. Absent: tenderness - Neurological Exam Neurological exam: Present: oriented X3 - Psychiatric Psychiatric exam: Present: normal affect, normal mood - Skin Skin exam: Present: warm, dry Results - Labs CBC & BMP: 03/25/17 04:17 03/25/17 04:17 Specialty Discharge - Follow Up or Referrals
--- NOTE | 2017-03-25 16:42 | Hospitalist Progress Note ---
Assessment and Plan (1) Diabetes Status: Chronic Current Visit: Yes Qualifiers: Diabetes mellitus type: type 2 (2) Atypical chest pain Status: Acute Assessment and plan: Difficult to interpret echo. Cardiology following. Await recommendations. Current Visit: Yes (3) Hypertension Status: Chronic Current Visit: Yes Qualifiers: Hypertension type: essential hypertension Qualified Code(s): I10 - Essential (primary) hypertension (4) Dyslipidemia Status: Chronic Current Visit: Yes (5) Obstructive sleep apnea Status: Chronic Assessment and plan: Continue CPAP at night. Current Visit: Yes Hospitalist: Subjective Interval history: Patient seen and examined. No acute events overnight. Case discussed with nursing staff. Labs reviewed. Exam - Constitutional Vitals: Period Temp Pulse Resp BP Sys/Phan Pulse Ox Last 24 Hr 96.4 F-97.7 F 79-101 16-20 120-140/61-88 94-99 Exam: Constitutional System: no distress. No tremulousness. Morbidly obese Head: Normocephalic, atraumatic. Ears, Nose and Throat System: No pain or tenderness. No epistaxis or discharge Eyes System: Pupils equal, round, and reactive. Extraocular muscles intact. Neck: Supple, without adenopathy, No jugular venous distention. No thyromegaly, neck mass, or prior surgery apparent. Respiratory System: Chest clear to auscultation. Cardiovascular System: Heart with regular rate and rhythm. GI System: Abdomen soft, nontender. Normo active bowel sounds present. Musculoskeletal System: limbs with no pedal edema. Full distal pulses. Chronic lower extremity stasis changes Neurological System: No discernable sensory deficit. No aphasia Psychiatric System: Conversation is rational - Expanded ENT Exam Mouth exam: Present: moist Teeth exam: Present: dental caries Throat exam: Absent: post pharyngeal edema, post pharyngeal erythema Results - Labs CBC & BMP: 03/25/17 04:17 03/25/17 04:17 Lab Results: I have reviewed the past 24 hour labs Specialty Discharge - Follow Up or Referrals
--- NOTE | 2017-03-25 17:44 | Cardiology Progress Note ---
<Livier Mello E - Last Filed: 03/25/17 17:33> Assessment and Plan - Time spent with patient Time spent with patient: Less than 30 minutes (1) Atypical chest pain Status: Acute Assessment and plan: See plan of care listed below. Current Visit: Yes (2) Hypertension Status: Chronic Assessment and plan: See plan of care listed below. Current Visit: Yes Qualifiers: Hypertension type: essential hypertension Qualified Code(s): I10 - Essential (primary) hypertension (3) Diabetes Status: Chronic Assessment and plan: See plan of care listed below. Current Visit: Yes Qualifiers: Diabetes mellitus type: type 2 (4) Dyslipidemia Status: Chronic Assessment and plan: See plan of care listed below. Current Visit: Yes (5) Obstructive sleep apnea Status: Chronic Assessment and plan: See plan of care listed below. Current Visit: Yes (6) History of congestive heart failure Status: Chronic Assessment and plan: See plan of care listed below. 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 Paul PCP: Dr. Kylie Sanchez SUMMARY:Ms. Mazariegos is a 46 year old female who has a history of congestive heart failure, hypertension, diabetes, obstructive sleep apnea, arthritis, and new onset dyslipidemia who presented to the emergency room with complaints of chest pain. We were consulted to see her. She ruled out for CA. She is not a candidate for stress testing given her weight of 365#. Given her symptoms which are exacerbated with ambulation, we may elect to proceed with heart catheterization prior to discharge. Her beta HCG was negative for . Echocardiogram was technically limited but revealed normal systolic function with grade I diastolic dysfunction, moderate LVH, trace to mild TR, mild pulmonary hypertension. MARCH 25, 2017 UPDATE: Labs and vital signs have been stable today. She has been ambulatory to the restroom and in her room without significant dyspnea or chest discomfort. She admits to being slightly dizzy when ambulating this morning, but has had no complaints this afternoon. ASSESSMENT/PLAN: 1. ATYPICAL CHEST PAIN - She reports many atypical features of chest pain; however, she has significant risk factors for CAD and reports her pain is exacerbated with ambulation. She may require heart catheterization prior to discharge. Will further discuss with Dr. Paul and await her additional recommendations. 2. HYPERTENSION - Currently well controlled with one elevated BP reading this afternoon. Will monitor and adjust medications accordingly throughout hospital stay. 3. DIABETES - She is on accuchecks and sliding scale insulin. 4. HYPERLIPIDEMIA - Patient has been started on atorvastatin 20mg po QHS. Will see if she tolerates. Lipid panel revealed triglycerides 209, cholesterol 220, LDL 144, and HDL 50. 5. OBSTRUCTIVE SLEEP APNEA - Sleep medicine is now following. . Patient has been provided with CPAP machine. 6. HISTORY OF CHF - Mild bilateral lower extremity edema with chronic vascular changes. BLE venous dopplers were negative for DVT. Exam (Progress Note) - Constitutional Vitals: Period Temp Pulse Resp BP Sys/Phan Pulse Ox Last 24 Hr 96.4 F-97.7 F 79-101 16-20 120-152/61-99 94-99 Exam: General appearance: Pleasant and cooperative. Morbid obesity, no acute distress. - Head Head exam: Present: normal inspection, normocephalic, atraumatic. Absent: hematoma, laceration - Eye Eye exam: Present: EOMI. Absent: conjunctival injection, nystagmus, periorbital swelling, scleral icterus, laceration to eyelids Pupils: Present: PERRL. Absent: constricted, dilated, fixed, irregular, unequal - ENT ENT exam: Present: normal exam, normal external ear exam - Neck Neck exam: Present: normal inspection. Absent: lymphadenopathy, meningismus, tenderness, thyromegaly, carotid bruit - Respiratory Respiratory exam: Present: clear to auscultation bilaterally. Absent: accessory muscle use, chest wall tenderness, rales, rhonchi, wheezing. - Cardiovascular Cardiovascular exam: Present: regular rate and rhythm. Absent: gallop, rubs, murmur - GI/Abdominal GI/Abdominal exam: Present: normal bowel sounds, soft. Absent: distended, firm , guarding, hernia, mass, rebound. - Extremities Exam Extremities exam: Present: normal inspection, normal capillary refill. Upper extremity pulses 2+. Lower extremity pulses 2+. Trace BLE edema. Absent: calf tenderness -Musculoskeletal Exam Musculoskeletal: Present: No Fluid Collection, No Pain, Normal Range of Motion - Back Exam Back exam: Present: normal inspection. Absent: muscle spasm, vertebral tenderness - Neurological Exam Neurological exam: Present: alert, oriented X3, grossly intact without resting or essential tremor - Psychiatric Psychiatric exam: Present: normal affect, normal mood - Skin Skin exam: Present: Chronic vascular changes to BLE, warm, dry, intact. Absent : cyanosis, diaphoretic, rash, urticaria Result/EKG - Labs CBC & BMP: 03/25/17 04:17 03/25/17 04:17 Lab Results: I have reviewed the past 24 hour labs Labs: Laboratory Results - last 24 hr 03/24/17 03/25/17 03/25/17 22:45 04:17 04:17 WBC 8.1 RBC 5.31 Hgb 12.9 Hct 44.8 MCV 84.4 L MCH 24 L MCHC 28.8 L RDW 18.2 H Plt Count 315 MPV 11.2 Neut % (Auto) 65.5 Lymph % (Auto) 23.6 [place] % (Auto) 7.4 Eos % (Auto) 2.8 Baso % (Auto) 0.2 Neut # (Auto) 5.3 Lymph # (Auto) 1.9 [place] # (Auto) 0.6 Eos # (Auto) 0.2 Baso # (Auto) 0.0 Immature Gran % 0.5 Nucleated RBC % 0.0 Immature Gran # 0.04 Nucleated RBCs # 0.00 Platelet Estimate Normal Immature Plt Fraction 0.0 Sodium 139 Potassium 4.5 Chloride 100 Carbon Dioxide 33 H Anion Gap 10.5 BUN 12 Creatinine 0.70 GFR Calculation 175 BUN/Creatinine Ratio 17.00 Glucose 214 H POC Glucose 233 H Hemoglobin A1c Calculated Osmolality 282.5 Calcium 8.6 Magnesium 1.9 Free T4 TSH 3rd Generation 03/25/17 03/25/17 03/25/17 04:17 04:17 07:57 WBC RBC Hgb Hct MCV MCH MCHC RDW Plt Count MPV Neut % (Auto) Lymph % (Auto) [place] % (Auto) Eos % (Auto) Baso % (Auto) Neut # (Auto) Lymph # (Auto) [place] # (Auto) Eos # (Auto) Baso # (Auto) Immature Gran % Nucleated RBC % Immature Gran # Nucleated RBCs # Platelet Estimate Immature Plt Fraction Sodium Potassium Chloride Carbon Dioxide Anion Gap BUN Creatinine GFR Calculation BUN/Creatinine Ratio Glucose POC Glucose 201 H Hemoglobin A1c 9.8 H Calculated Osmolality Calcium Magnesium Free T4 0.91 TSH 3rd Generation 1.590 03/25/17 03/25/17 11:17 15:51 WBC RBC Hgb Hct MCV MCH MCHC RDW Plt Count MPV Neut % (Auto) Lymph % (Auto) [place] % (Auto) Eos % (Auto) Baso % (Auto) Neut # (Auto) Lymph # (Auto) [place] # (Auto) Eos # (Auto) Baso # (Auto) Immature Gran % Nucleated RBC % Immature Gran # Nucleated RBCs # Platelet Estimate Immature Plt Fraction Sodium Potassium Chloride Carbon Dioxide Anion Gap BUN Creatinine GFR Calculation BUN/Creatinine Ratio Glucose POC Glucose 255 H 250 H Hemoglobin A1c Calculated Osmolality Calcium Magnesium Free T4 TSH 3rd Generation - EKG EKG results: interpreted by me, sinus rhythm Specialty Discharge - Follow Up or Referrals <Sarah Paul - Last Filed: 03/25/17 17:55> Cardiology - PN: Subj Interval history: I have personally interviewed and evaluated the patient, reviewed the chart and discussed medical decision-making with practitioner Riaz. I have read this note and agree with her documentation here in. The patient was admitted with some chest pain that has some atypical and some typical characteristics. Her habitus is prohibitive of noninvasive testing for further risk stratification. Initially I was concerned that her chief complaint was lower abdominal pain that had been ongoing for a while and still bothering her during my interview. Initially we were awaiting further workup of that to make sure there was no other acute process occurring. At this point, she tells me the lower abdominal pain is improved as is her chest discomfort which is also improving. We will proceed with heart catheterization tomorrow. I will consult anesthesiology to assist with sedation for this given her airway and habitus. Consider a radial approach. Exam (Progress Note) - Constitutional Vitals: Period Temp Pulse Resp BP Sys/Phan Pulse Ox Last 24 Hr 96.4 F-97.7 F 79-101 16-20 120-152/61-99 94-99 Result/EKG - Labs CBC & BMP: 03/25/17 04:17 03/25/17 04:17 Labs: Laboratory Results - last 24 hr 03/24/17 03/25/17 03/25/17 22:45 04:17 04:17 WBC 8.1 RBC 5.31 Hgb 12.9 Hct 44.8 MCV 84.4 L MCH 24 L MCHC 28.8 L RDW 18.2 H Plt Count 315 MPV 11.2 Neut % (Auto) 65.5 Lymph % (Auto) 23.6 [place] % (Auto) 7.4 Eos % (Auto) 2.8 Baso % (Auto) 0.2 Neut # (Auto) 5.3 Lymph # (Auto) 1.9 [place] # (Auto) 0.6 Eos # (Auto) 0.2 Baso # (Auto) 0.0 Immature Gran % 0.5 Nucleated RBC % 0.0 Immature Gran # 0.04 Nucleated RBCs # 0.00 Platelet Estimate Normal Immature Plt Fraction 0.0 Sodium 139 Potassium 4.5 Chloride 100 Carbon Dioxide 33 H Anion Gap 10.5 BUN 12 Creatinine 0.70 GFR Calculation 175 BUN/Creatinine Ratio 17.00 Glucose 214 H POC Glucose 233 H Hemoglobin A1c Calculated Osmolality 282.5 Calcium 8.6 Magnesium 1.9 Free T4 TSH 3rd Generation 03/25/17 03/25/17 03/25/17 04:17 04:17 07:57 WBC RBC Hgb Hct MCV MCH MCHC RDW Plt Count MPV Neut % (Auto) Lymph % (Auto) [place] % (Auto) Eos % (Auto) Baso % (Auto) Neut # (Auto) Lymph # (Auto) [place] # (Auto) Eos # (Auto) Baso # (Auto) Immature Gran % Nucleated RBC % Immature Gran # Nucleated RBCs # Platelet Estimate Immature Plt Fraction Sodium Potassium Chloride Carbon Dioxide Anion Gap BUN Creatinine GFR Calculation BUN/Creatinine Ratio Glucose POC Glucose 201 H Hemoglobin A1c 9.8 H Calculated Osmolality Calcium Magnesium Free T4 0.91 TSH 3rd Generation 1.590 03/25/17 03/25/17 11:17 15:51 WBC RBC Hgb Hct MCV MCH MCHC RDW Plt Count MPV Neut % (Auto) Lymph % (Auto) [place] % (Auto) Eos % (Auto) Baso % (Auto) Neut # (Auto) Lymph # (Auto) [place] # (Auto) Eos # (Auto) Baso # (Auto) Immature Gran % Nucleated RBC % Immature Gran # Nucleated RBCs # Platelet Estimate Immature Plt Fraction Sodium Potassium Chloride Carbon Dioxide Anion Gap BUN Creatinine GFR Calculation BUN/Creatinine Ratio Glucose POC Glucose 255 H 250 H Hemoglobin A1c Calculated Osmolality Calcium Magnesium Free T4 TSH 3rd Generation
[2017-03-25] MEDS ORDERED: POTASSIUM CHLORIDE RIDER 10 MEQ in PREMIX 1 EACH IV PRN (17:56)
[2017-03-25] MEDS ORDERED: MAGNESIUM SULF RIDER 2 GM in PREMIX 1 EACH IV PRN (17:56)
[2017-03-25] MEDS: SODIUM CHLORIDE 0.45% 1,000 ML IV SCH (18:36)
[2017-03-25] MEDS: ATORVASTATIN 20 MG TABLET PO SCH (20:35)
[2017-03-26 05:44] LABS: Calcium 8.6 MG/DL (8.5-10.1); Magnesium 2.2 MG/DL (1.8-2.4); Osmolality,Calculated 280.5 MOS/KG (273-304); Potassium 4.7 MMOL/L (3.5-5.1)
[2017-03-26 05:49] LABS: Basophils % 0.4 % (0.0-0.8); Eosinophils # 0.2 10*3/uL (0.0-0.87); Eosinophils % 3.1 % (0.00-10.9); Hematocrit 42.9 VOL% (35.7-47.0); Hemoglobin 12.9 GM/DL (12.0-16.0); Immature Granulocytes % 0.4 %; Immature Granulocytes Absolute 0.03 #; Lymphocytes # 2.1 10*3/uL (1.4-4.0); Lymphocytes % 27.6 % (21.3-54.2); Mean Corpuscular HGB Conc 30.1 GM/DL (32-36); Mean Corpuscular Hemoglobin 25 PG (27-34); Mean Corpuscular Volume 83.1 FL (87-102); Mean Platelet Volume 11.2 FL (9.6-12.0); Monocytes # 0.6 10*3/uL (0.11-0.8); Monocytes % 7.8 % (1.7-12.7); Neutrophils # 4.5 10*3/uL (1.4-7.4); Neutrophils % 60.7 % (38.7-73.9); Platelet Count 291 T/CUMM (130-400); Red Blood Count 5.16 MC/CUMM (3.8-5.5); Red Cell Distribution Width 17.4 % (9.3-17.3); White Blood Count 7.5 T/CUMM (4-12)
[2017-03-26] MEDS ORDERED: diphenhydrAMINE CAP 25 MG CAPSULE PO ONE (07:00)
[2017-03-26] MEDS ORDERED: DIAZEPAM 5 MG TABLET PO ONE (07:00)
[2017-03-26] MEDS: INSULIN REGULAR 100 UNIT/ML SUBCUT SCH ×4 (07:34→20:48)
[2017-03-26] MEDS: ASPIRIN EC 325 MG TABLET PO SCH (09:07)
[2017-03-26] MEDS: ENOXAPARIN 40 MG/0.4 ML SYRINGE SUBCUT SCH (09:08)
[2017-03-26] MEDS: SODIUM CHLORIDE 0.45% 1,000 ML IV SCH (09:08)
[2017-03-26] MEDS: PANTOPRAZOLE 40 MG VIAL IV SCH ×2 (09:08→20:48)
[2017-03-26] MEDS ORDERED: CITRIC ACID/SODIUM CITRATE 30 ML UDCUP PO ONE ×2 (10:04→10:30)
[2017-03-26] MEDS ORDERED: GLYCOPYRROLATE 0.4 MG/2 ML VIAL IM ONE ×2 (10:05→10:30)
[2017-03-26] MEDS ORDERED: HEPARIN/NACL 0.9% 2 UNITS/ML 1,000 ML IV ONE (10:30)
[2017-03-26] MEDS ORDERED: LIDOCAINE 1% 20 ML VIAL ONE (10:30)
--- NOTE | 2017-03-26 10:45 | History and Physical Update ---
Sedation H&P Update - History and Physical H&P was reviewed, the patient examined and there: are no changes in the patients condition since last H&P was completed. - Sedation Plan for Sedation: moderate Patient Consent: Procedure disscussed with patient and patinet has consented., Risks and benefits were discussed with patient,including infection,, bleeding, injury to surrounding structures, seizure, temporary nerve, Patient understands and accepts potential risks/benefits and agrees to, proceed. ASA Class: III Airway Assessment: Class IV: Only hard palate visible
--- NOTE | 2017-03-26 10:51 | Hospitalist Progress Note ---
Assessment and Plan (1) Atypical chest pain Status: Acute Assessment and plan: Difficult to interpret echo. Cardiology following. Left heart cath today Current Visit: Yes (2) Diabetes Status: Chronic Current Visit: Yes Qualifiers: Diabetes mellitus type: type 2 (3) Hypertension Status: Chronic Current Visit: Yes Qualifiers: Hypertension type: essential hypertension Qualified Code(s): I10 - Essential (primary) hypertension (4) Dyslipidemia Status: Chronic Current Visit: Yes (5) Obstructive sleep apnea Status: Chronic Assessment and plan: Continue CPAP at night. Current Visit: Yes Hospitalist: Subjective Interval history: Ms. Mazariegos has no complaints this morning. She is scheduled for left heart cath. Exam - Constitutional Vitals: Period Temp Pulse Resp BP Sys/Phan Pulse Ox Last 24 Hr 97.1 F-97.8 F 81-101 20-20 130-169/67-99 95-100 Exam: Constitutional System: no distress. No tremulousness. Morbidly obese Head: Normocephalic, atraumatic. Ears, Nose and Throat System: No pain or tenderness. No epistaxis or discharge Eyes System: Pupils equal, round, and reactive. Extraocular muscles intact. Neck: Supple, without adenopathy, No jugular venous distention. Respiratory System: Chest clear to auscultation. Cardiovascular System: Heart with regular rate and rhythm. GI System: Abdomen soft, nontender. Normo active bowel sounds present. Musculoskeletal System: limbs with no pedal edema. Full distal pulses. Chronic lower extremity stasis changes Neurological System: No discernable sensory deficit. No aphasia Psychiatric System: Conversation is rational - Expanded ENT Exam Mouth exam: Present: moist Teeth exam: Present: dental caries Throat exam: Absent: post pharyngeal edema, post pharyngeal erythema Results - Labs CBC & BMP: 03/26/17 04:40 03/26/17 04:40 Lab Results: I have reviewed the past 24 hour labs Specialty Discharge - Follow Up or Referrals
[2017-03-26] MEDS ORDERED: NITROGLYCERIN DRIP 50 MG/250 ML BOTTLE IV ONE (10:53)
[2017-03-26] MEDS ORDERED: VERAPAMIL 5 MG/2 ML VIAL ONE (10:53)
--- NOTE | 2017-03-26 11:21 | Cardiac Catheterization ---
Date of Procedure:: 03/26/17 Pre-op Diagnosis: Exertional chest pain morbid obesity for evaluation and intervention if indicated Post-op diagnosis: same Procedure: Procedures performed: 1: Left heart catheterization 2: Coronary arteriography 3: Left ventriculography After obtaining informed consent the patient was brought to the cardiac catheterization lab where the right wrist was prepped and draped in the usual sterile fashion. Using intravenous sedation and local anesthesia a needle was inserted into the right radial artery and a guidewire was positioned without difficulty. A 5 [place] sheath was advanced over the guidewire and positioned in the right radial artery without difficulty. Patient was given verapamil and nitroglycerin intra-arterial as a vasodilator. At this point a Lake catheter was advanced over a guidewire under fluoroscopic control to the ascending aorta where the left main coronary ostium was engaged and multiple angiograms were obtained in multiple angulations. Next this catheter was manipulated into the right coronary artery and multiple angiograms of the right coronary artery was undertaken in multiple views. After adequate angiograms the right coronary were obtained this catheter then with the assistance of a guidewire was advanced across the aortic valve into the left ventricle and a left ventriculogram was obtained in the CASILLAS projection injecting 30 mL of contrast at 12 mL/s. After adequate ventriculography was obtained this catheter was pulled back from the ventricle to the aorta under hemodynamic monitoring and removed. Patient then underwent T R band application 2 mm above the radial skin entry site. 15 mL of air was in injected into the hemo band and the radial sheath was pulled. Air was removed from the TR band and 1 mL intervals until a arterial flash was noted. Additional 2 mL of air were added back to the TR band at this point. The patient tolerated procedure well. His right hand was warm with good capillary fill noted. Patient was transferred to the holding area having suffered no significant immediate complications. Hemodynamics: Please see accompanying data sheet Coronary angiography: Left coronary artery: Left main coronary artery is well-developed and free of significant obstructing lesions. The circumflex coronary artery is a large nondominant vessel with possesses no significant lesions throughout its course. The branches of the circumflex likewise are free of significant obstructing lesions. The left anterior descending coronary artery is large vessel that extends to the apex of the ventricle. The LAD and its branches are free of significant obstructing lesions. Right coronary artery: Right coronary artery is a large dominant vessel that possesses no significant lesions throughout its course. The branches of the right coronary artery are likewise free of significant obstructing lesions. Left ventriculography: After injection of contrast in the left ventricle is noted be of normal size with normal contractility. Mitral and aortic structures appear normal by ventriculography. Conclusions: 1: Borderline significant stenosis of the ostium of a small first diagonal, otherwise no evidence of significant fixed coronary obstruction is noted. 2: Normal left ventricular systolic function and ejection fraction in the 55% range 3: Normal end-diastolic pressures at rest. Discussion and recommendations: Patient is morbidly obese with exertional chest discomfort which is atypical for angina. She has no evidence of significant occlusive coronary disease and our plan will be to continue evaluation related to further etiologies of her discomfort. Her findings will be shared with her primary data manager Dr. Paul Surgeon / Physician: Rickie Ambrose Estimated blood loss: minimal Specimens: none sent Condition: stable - Medications / Follow-up
[2017-03-26] MEDS ORDERED: PROPOFOL 200 MG/20 ML VIAL IV ONE (11:50)
[2017-03-26] MEDS ORDERED: ETOMIDATE 20 MG/10 ML VIAL IV ONE (11:51)
--- NOTE | 2017-03-26 11:57 | Anesthesia Post-Op ---
Anesthesia Post OP - Post Ansesthetic Evaluation Patient seen in post op: Yes Resp: within normal limits CV: within normal limits Mental: within normal limits Temp: within normal limits [id number]: within normal limits Nausea and Vomiting: within normal limits Pain: within normal limits
[2017-03-26] MEDS: ACETAMINOPHEN 325 MG TABLET PO PRN ×2 (18:38→22:43)
[2017-03-26] MEDS: ATORVASTATIN 20 MG TABLET PO SCH (20:49)
[2017-03-27 08:43] VITALS: BP 148/99
--- NOTE | 2017-03-27 08:54 | Discharge Summary ---
Hospital Course - Hospital Course Hospital Course: Ms. Mazariegos is a 46 year old female who has a history of congestive heart failure, hypertension, diabetes, obstructive sleep apnea, arthritis, and new onset dyslipidemia who presented to the emergency room with complaints of chest pain. We were consulted to see her. She ruled out for AR. She is not a candidate for stress testing given her weight of 365#. Given her symptoms which are exacerbated with ambulation, we may elect to proceed with heart catheterization prior to discharge. Her beta HCG was negative for . Echocardiogram was technically limited but revealed normal systolic function with grade I diastolic dysfunction, moderate LVH, trace to mild TR, mild pulmonary hypertension. Labs and vital signs have been stable today. She has been ambulatory to the restroom and in her room without significant dyspnea or chest discomfort. ASSESSMENT/PLAN: 1. ATYPICAL CHEST PAIN - She reports many atypical features of chest pain; however, she has significant risk factors for CAD and reports her pain is exacerbated with ambulation. 2. HYPERTENSION - Currently well controlled with one elevated BP reading this afternoon. Will monitor and adjust medications accordingly throughout hospital stay. 3. DIABETES - She is on accuchecks and sliding scale insulin. 4. HYPERLIPIDEMIA - Patient has been started on atorvastatin 20mg po QHS. Will see if she tolerates. Lipid panel revealed triglycerides 209, cholesterol 220, LDL 144, and HDL 50. 5. OBSTRUCTIVE SLEEP APNEA - Sleep medicine is now following. . Patient has been provided with CPAP machine. 6. HISTORY OF CHF - Mild bilateral lower extremity edema with chronic vascular changes. BLE venous dopplers were negative for DVT. She underwent left heart cath by Dr. Ambrose showin: Borderline significant stenosis of the ostium of a small first diagonal, otherwise no evidence of significant fixed coronary obstruction is noted. 2: Normal left ventricular systolic function and ejection fraction in the 55% range 3: Normal end-diastolic pressures at rest. She will be managed medically and discharged home in stable condition to follow- up with her slab inspector and primary care physician. Home medications were reviewed and reconciled. - Time spent with patient Time with patient DS: Greater than 30 minutes (Total discharge time for this patient, including [id number] time, clinical documentation, medication reconciliation, and discharge planning was 41 minutes.) Diagnosis - Discharge Diagnosis (1) Atypical chest pain Status: Resolved (2) Diabetes Status: Chronic (3) Hypertension Status: Chronic (4) Dyslipidemia Status: Chronic (5) Obstructive sleep apnea Status: Chronic (6) Morbid obesity due to excess calories Status: Chronic Specialty Discharge - Follow Up or Referrals Follow up with: Rickie Ambrose MD [Physician] - 04/09/17 2:00 pm (RIGHT RADIAL CHECK AND FOLLOW UP) Discharge Plan - Discharge Data Disposition: Disch To Home/Self Care Condition at Discharge: Stable Discharge Diet: advance to your usual diet Activity: resume usual activities as tolerated, no lifting Hygiene: no restrictions Contact your physician if you experience:: fever over 101, Shortness of breath, pain uncontrolled by pain medications - Discharge Medications New Atorvastatin [Lipitor] 20 mg PO BEDTIME #30 tablet Aspirin EC Tab 325 mg PO DAILY tablet Continue metFORMIN [Glucophage] 850 mg PO BID W/MEALS traMADol TAB [Ultram] 50 mg PO Q6H PRN PRN Reason: Pain Furosemide Tab [Lasix Tab] 20 mg PO BID DIURETIC Liraglutide [Victoza 3-Luis Antonio] 1.8 mg SUBCUT DAILY Acetamin/Codeine 300-30 Tab [Tylenol/Codeine #3] 1 - 2 tablet PO Q6HR MDD pain - Follow Up or Referral Follow Up: Rickie Ambrose MD [Physician] - 04/09/17 2:00 pm (RIGHT RADIAL CHECK AND FOLLOW UP) - Forms/Instructions Instructions: Coronary Artery Disease (GEN), Chest Pain (ED), Left Heart Catheterization (DC), Heart Healthy Diet (GEN) Exam - Constitutional Vitals: Period Temp Pulse Resp BP Sys/Phan Pulse Ox Last 24 Hr 96.7 F-98.8 F 86-98 16-20 133-178/70-108 93-100 Discharge Results Labs on day of discharge: Labs from last 24 hours 03/27/17 03/26/17 03/26/17 07:57 19:11 16:08 POC Glucose 198 H 271 H 273 H 03/26/17 12:03 POC Glucose 194 H DS: Provider Date of admission: 03/24/17 02:45 Primary care physician: . No PCP Attending physician on admission: Faisal Martinez MD Consults: 03/24/17 02:48 Consult to Physician [CONS] Routine Comment: Consulting Provider: Consult to Specialist Group: Cardiology When should Consulting Provider be notified: In am Person Notified: Lucas Date Notified: 03/24/17 Time Notified: 07:45 03/24/17 11:58 Consult to Sleep Center [CONS] Routine Reason for Sleep Center: Technologist Assist Consult Comment: hx of TORIN, doesn't have CPAP machine 03/26/17 11:22 Consult to Cardiac Rehabilitation [CONS] Routine Reason for Cardiac Rehabilitation: Risk Factor Modification Discharging clinician: Patrice Henson MD Expected date of discharge: 03/27/17
[2017-03-27] MEDS: ENOXAPARIN 40 MG/0.4 ML SYRINGE SUBCUT SCH (09:20)
[2017-03-27] MEDS: INSULIN REGULAR 100 UNIT/ML SUBCUT SCH (09:21)
[2017-03-27] MEDS: ASPIRIN EC 325 MG TABLET PO SCH (09:22)
[2017-03-27] MEDS: PANTOPRAZOLE 40 MG VIAL IV SCH (09:22)
== END 2017-03-27 11:40 | disposition home or self-care (01) | DRG 287 ==
LOC: N.EDINP 21:15 → N.ED 21:15 → SUATTDRO 03-24 02:45 → OBSVTOIN 03-24 02:45 → N.TELES 03-24 03:56
PROVIDERS: ADMIT Internal Medicine; ATTEND Family Medicine
PROC: CLCCHCL (ICD-10-PCS; 2017-03-26 12:15)